=== PATIENT | male | born 1970 | race African-American/Black ===

== ENCOUNTER 2022-04-21 02:43 | Inpatient (IN) ==
[2022-04-21] MEDS ORDERED: ONDANSETRON 4 MG/2 ML VIAL ONE ×2 (04:27→08:40)
[2022-04-21] MEDS ORDERED: HYDROmorphone 1 MG/1 ML SYRINGE ONE (04:27)
[2022-04-21] MEDS ORDERED: HYDROmorphone 1 MG/1 ML SYRINGE IV STA (04:29)
[2022-04-21] MEDS ORDERED: ONDANSETRON 4 MG/2 ML VIAL IV STA (04:29)
[2022-04-21] MEDS ORDERED: SEVOFLURANE 1 UNIT/15 MINUTE INH ONE ×2 (07:29→09:38)
[2022-04-21] MEDS ORDERED: LIDOCAINE 2% 5 ML VIAL ONE (07:29)
[2022-04-21] MEDS ORDERED: propofoL 200 MG/20 ML VIAL IV ONE (07:29)
[2022-04-21] MEDS ORDERED: fentaNYL 100 MCG/2 ML VIAL ONE (07:30)
[2022-04-21] MEDS ORDERED: MIDAZOLAM 2 MG/2 ML VIAL ONE (07:30)
[2022-04-21] MEDS ORDERED: BUPIVACAINE MPF 0.25% 10 ML VIAL ONE (07:59)
[2022-04-21] MEDS ORDERED: TISSUE ADHESIVE 1 EACH APPLICATOR TOP ONE (08:00)
[2022-04-21] MEDS ORDERED: LIDOCAINE 1%/EPI INJ 20 ML VIAL ONE (08:00)
[2022-04-21] MEDS ORDERED: LACTATED RINGERS 1,000 ML IV SCH (08:30)
[2022-04-21] MEDS ORDERED: ceFAZolin 1,000 MG VIAL ONE (08:38)
[2022-04-21] MEDS ORDERED: KETOROLAC 30 MG/1 ML VIAL ONE ×2 (08:40→11:39)
[2022-04-21] MEDS ORDERED: PHENYLEPHRINE 1 MG/10 ML SYRINGE IV ONE (08:40)
[2022-04-21] MEDS ORDERED: ACETAMINOPHEN INJ 0 MG/0 ML VIAL IV ONE (08:40)
[2022-04-21] MEDS ORDERED: DEXAMETHASONE 4 MG/1 ML VIAL ONE (08:40)
[2022-04-21] MEDS ORDERED: ePHEDrine 50 MG/ML VIAL ONE (08:50)
[2022-04-21] MEDS ORDERED: GLYCOPYRROLATE 0.4 MG/2 ML VIAL ONE (09:33)
[2022-04-21] MEDS ORDERED: NEOSTIGMINE 10 MG/10 ML VIAL ONE (09:34)
[2022-04-21] MEDS ORDERED: SUGAMMADEX 200 MG/2 ML VIAL IV ONE (09:56)
[2022-04-21] MEDS ORDERED: HYDROmorphone 1 MG/1 ML SYRINGE IV PRN ×2 (10:04→10:05)
[2022-04-21] MEDS ORDERED: ACETAMINOPHEN 325 MG TABLET PO PRN (10:04)
[2022-04-21] MEDS ORDERED: SODIUM CHLORIDE 0.9% 1,000 ML IV SCH (10:04)
[2022-04-21] MEDS ORDERED: ONDANSETRON 4 MG/2 ML VIAL IV PRN ×3 (10:04→11:24)
[2022-04-21] MEDS ORDERED: MEPERIDINE 25 MG/1 ML VIAL IV PRN (10:05)
[2022-04-21] MEDS ORDERED: diphenhydrAMINE 50 MG/1 ML VIAL IV PRN (10:05)
[2022-04-21] MEDS ORDERED: PROMETHAZINE INJ 25 MG in SODIUM CHLORIDE 0.9% 50 ML IV PRN (10:05)
[2022-04-21] MEDS ORDERED: PIPERACILLIN/TAZOBACTAM 3,375 MG VIAL IV ONE (10:57)
[2022-04-21] MEDS ORDERED: SODIUM CHLORIDE 0.9% 100 ML IV ONE (11:01)
[2022-04-21] MEDS: PANTOPRAZOLE 40 MG VIAL IV SCH (11:02)
[2022-04-21] MEDS ORDERED: BISACODYL 5 MG TABLET PO PRN (11:24)
[2022-04-21] MEDS ORDERED: ALBUTEROL/IPRATROPIUM 3 ML NEB RESP TX PRN (11:24)
[2022-04-21] MEDS: LACTATED RINGERS 1,000 ML IV SCH ×2 (11:39→15:55)
[2022-04-21] MEDS: PIPERACILLIN/TAZOBACTAM 3,375 MG in SODIUM CHLORIDE 0.9% 100 ML IV SCH ×2 (11:39→20:43)
[2022-04-21] MEDS: KETOROLAC 30 MG/1 ML VIAL IV SCH ×3 (11:43→23:00)
[2022-04-22] MEDS: LACTATED RINGERS 1,000 ML IV SCH ×3 (02:06→18:24)
[2022-04-22] MEDS: KETOROLAC 30 MG/1 ML VIAL IV SCH ×3 (04:42→21:12)
[2022-04-22] MEDS: ENOXAPARIN 40 MG/0.4 ML SYRINGE SUBCUT SCH (04:42)
[2022-04-22] MEDS: PIPERACILLIN/TAZOBACTAM 3,375 MG in SODIUM CHLORIDE 0.9% 100 ML IV SCH ×3 (04:42→21:12)
[2022-04-22 04:56] LABS: Basophils % 0.2 % (0.0-0.8); Hematocrit 36.1 VOL% (42.0-52.0); Immature Granulocytes % 2.1 %; Lymphocytes # 0.7 10*3/uL (1.4-4.0); Lymphocytes % 4.9 % (21.2-54.2); Mean Corpuscular HGB Conc 33.2 GM/DL (32-36); Mean Corpuscular Volume 89.8 FL (87-102); Mean Platelet Volume 9.9 FL (9.6-12.0); Monocytes # 0.7 10*3/uL (0.11-0.8); Monocytes % 4.7 % (1.7-12.7); Neutrophils % 88.1 % (38.7-73.9); Platelet Count 302 T/CUMM (130-400); Red Blood Count 4.02 MC/CUMM (3.8-5.5); Red Cell Distribution Width 14.4 % (9.3-17.3); White Blood Count 14.2 T/CUMM (4-12)
[2022-04-22 05:20] LABS: Band Neutrophils 14 % (0-10); Hypochromia Slight; Lymphocytes 7 % (20-55); Metamyelocytes 2 %; Microcytosis 1+; Myelocytes 1 %; Total Cells Counted 100
[2022-04-22 05:21] LABS: Bilirubin,Total 1.1 MG/DL (0.20-1.00); Calcium 7.6 MG/DL (8.5-10.1); Osmolality,Calculated 283.4 MOS/KG (273-304); Ovalocytes Slight; Potassium 4.1 MMOL/L (3.5-5.1); Target Cells Slight; Total Protein 6.6 G/DL (6.4-8.2)
[2022-04-22 05:22] LABS: Platelet Estimate Normal
[2022-04-22] MEDS: PANTOPRAZOLE 40 MG VIAL IV SCH (08:28)
[2022-04-23] MEDS: PIPERACILLIN/TAZOBACTAM 3,375 MG in SODIUM CHLORIDE 0.9% 100 ML IV SCH ×3 (04:20→21:57)
[2022-04-23] MEDS: KETOROLAC 30 MG/1 ML VIAL IV SCH ×4 (04:20→21:56)
[2022-04-23 05:25] LABS: Basophils % 0.1 % (0.0-0.8); Eosinophils % 0.2 % (0.00-10.9); Hemoglobin 11.4 GM/DL (14.0-18.0); Immature Granulocytes Absolute 0.13 #; Lymphocytes # 0.8 10*3/uL (1.4-4.0); Lymphocytes % 6.2 % (21.2-54.2); Mean Corpuscular HGB Conc 33.5 GM/DL (32-36); Mean Corpuscular Volume 88.8 FL (87-102); Monocytes # 0.4 10*3/uL (0.11-0.8); Neutrophils % 89.5 % (38.7-73.9); Platelet Count 283 T/CUMM (130-400); Red Blood Count 3.83 MC/CUMM (3.8-5.5); Red Cell Distribution Width 14.3 % (9.3-17.3); White Blood Count 13.5 T/CUMM (4-12)
[2022-04-23 05:51] LABS: Albumin 2.7 G/DL (3.4-5.0); Band Neutrophils 1 % (0-10); Calcium 7.7 MG/DL (8.5-10.1); Lymphocytes 8 % (20-55); Osmolality,Calculated 286.8 MOS/KG (273-304); Platelet Estimate Adequate; Potassium 3.4 MMOL/L (3.5-5.1); Total Cells Counted 100; Total Protein 6.6 G/DL (6.4-8.2)
[2022-04-23] MEDS: LACTATED RINGERS 1,000 ML IV SCH ×2 (08:03→14:55)
[2022-04-23] MEDS: ENOXAPARIN 40 MG/0.4 ML SYRINGE SUBCUT SCH (08:49)
[2022-04-23] MEDS: PANTOPRAZOLE 40 MG VIAL IV SCH (08:50)
[2022-04-24] MEDS: KETOROLAC 30 MG/1 ML VIAL IV SCH ×2 (02:30→09:07)
[2022-04-24] MEDS: LACTATED RINGERS 1,000 ML IV SCH ×4 (05:51→18:32)
[2022-04-24] MEDS: PIPERACILLIN/TAZOBACTAM 3,375 MG in SODIUM CHLORIDE 0.9% 100 ML IV SCH ×3 (05:53→20:18)
[2022-04-24] MEDS: ENOXAPARIN 40 MG/0.4 ML SYRINGE SUBCUT SCH (09:07)
[2022-04-24] MEDS: PANTOPRAZOLE 40 MG VIAL IV SCH (09:08)
[2022-04-24] MEDS: hydrALAZINE 20 MG/1 ML VIAL IV PRN (10:34)
[2022-04-25] MEDS: LACTATED RINGERS 1,000 ML IV SCH ×3 (03:13→21:03)
[2022-04-25] MEDS: PIPERACILLIN/TAZOBACTAM 3,375 MG in SODIUM CHLORIDE 0.9% 100 ML IV SCH ×3 (04:15→21:03)
[2022-04-25] MEDS: ENOXAPARIN 40 MG/0.4 ML SYRINGE SUBCUT SCH (09:20)
[2022-04-25] MEDS: PANTOPRAZOLE 40 MG VIAL IV SCH (09:20)
[2022-04-25] MEDS: hydrALAZINE 20 MG/1 ML VIAL IV PRN (18:38)
[2022-04-26] MEDS: hydrALAZINE 20 MG/1 ML VIAL IV PRN (00:49)
[2022-04-26] MEDS: HYDROmorphone 1 MG/1 ML SYRINGE IV PRN ×2 (03:49→21:13)
[2022-04-26] MEDS: PIPERACILLIN/TAZOBACTAM 3,375 MG in SODIUM CHLORIDE 0.9% 100 ML IV SCH ×3 (04:26→21:09)
[2022-04-26] MEDS: LACTATED RINGERS 1,000 ML IV SCH ×3 (05:01→23:03)
[2022-04-26] MEDS: ENOXAPARIN 40 MG/0.4 ML SYRINGE SUBCUT SCH (08:48)
[2022-04-26] MEDS: PANTOPRAZOLE 40 MG VIAL IV SCH (08:49)
[2022-04-27 05:01] LABS: Basophils # 0.1 10*3/uL (0.0-0.2); Basophils % 0.5 % (0.0-0.8); Eosinophils # 0.2 10*3/uL (0.0-0.87); Eosinophils % 1.9 % (0.00-10.9); Hematocrit 33.1 VOL% (42.0-52.0); Hemoglobin 11.1 GM/DL (14.0-18.0); Immature Granulocytes % 5.5 %; Immature Granulocytes Absolute 0.59 #; Lymphocytes % 28.2 % (21.2-54.2); Mean Corpuscular HGB Conc 33.5 GM/DL (32-36); Mean Corpuscular Volume 87.8 FL (87-102); Mean Platelet Volume 9.7 FL (9.6-12.0); Monocytes # 1.3 10*3/uL (0.11-0.8); Monocytes % 11.8 % (1.7-12.7); Neutrophils % 52.1 % (38.7-73.9); Platelet Count 336 T/CUMM (130-400); Red Blood Count 3.77 MC/CUMM (3.8-5.5); Red Cell Distribution Width 14.3 % (9.3-17.3); White Blood Count 10.7 T/CUMM (4-12)
[2022-04-27] MEDS: PIPERACILLIN/TAZOBACTAM 3,375 MG in SODIUM CHLORIDE 0.9% 100 ML IV SCH ×3 (05:23→21:54)
[2022-04-27 05:39] LABS: Anisocytosis 1+; Atypical Lymphocytes Few; Band Neutrophils 5 % (0-10); Eosinophils 3 % (0-10); Lymphocytes 30 % (20-55); Myelocytes 1 %; Platelet Estimate Normal; Target Cells Few; Total Cells Counted 100
[2022-04-27 05:40] LABS: Macrocytosis Slight
[2022-04-27] MEDS: PANTOPRAZOLE 40 MG VIAL IV SCH (09:31)
[2022-04-27] MEDS: ENOXAPARIN 40 MG/0.4 ML SYRINGE SUBCUT SCH (09:31)
[2022-04-27] MEDS: LACTATED RINGERS 1,000 ML IV SCH ×2 (13:00→22:58)
[2022-04-27] MEDS: hydrALAZINE 20 MG/1 ML VIAL IV PRN (17:03)
[2022-04-28] MEDS: HYDROmorphone 1 MG/1 ML SYRINGE IV PRN ×2 (01:57→10:25)
[2022-04-28] MEDS: PIPERACILLIN/TAZOBACTAM 3,375 MG in SODIUM CHLORIDE 0.9% 100 ML IV SCH ×3 (05:13→20:55)
[2022-04-28] MEDS: LACTATED RINGERS 1,000 ML IV SCH ×2 (05:32→13:32)
[2022-04-28] MEDS: PANTOPRAZOLE 40 MG VIAL IV SCH (08:13)
[2022-04-28] MEDS: ENOXAPARIN 40 MG/0.4 ML SYRINGE SUBCUT SCH (08:14)
[2022-04-29 07:41] VITALS: BP 169/95
[2022-04-29] MEDS: ENOXAPARIN 40 MG/0.4 ML SYRINGE SUBCUT SCH (09:33)
[2022-04-29] MEDS: PANTOPRAZOLE 40 MG VIAL IV SCH (09:34)
== END 2022-04-29 11:12 | disposition home or self-care (01) | DRG 339 ==
LOC: EDUNIT# → EDBD → N.ED 02:43 → N.EDINP 04:07 → N.5E 12:15 → N.2E 04-22 10:49
PROVIDERS: ADMIT Surgery; ATTEND Surgery